=== PATIENT | male | born 1960 | race African-American/Black ===

== ENCOUNTER 2018-05-08 12:38 | Inpatient (IN) | payer OTHER ==
[~2018-05-08] VITALS: Ht 182.9 cm; Wt 81.3 kg
[2018-05-08 14:12] LABS: Basophils # (auto) 0.1 uL; Eosinophils # (auto) 0 uL; Eosinophils % (auto) 0.3 % (0.0-7.0); Hematocrit 45.9 % (41.0-53.0); Hemoglobin 15.1 g/dL (13.5-17.5); Lymphocytes # (auto) 2.7 uL; Lymphocytes % (auto) 22.8 % (10.0-50.0); Mean Corpuscular Hemoglobin 30.9 pg (28.0-32.0); Mean Corpuscular Volume 93.8 fL (80.0-100.0); Monocytes # (auto) 0.8 uL; Monocytes % (auto) 6.9 % (0.0-12.0); Neutrophils # (auto) 8.1 uL; Nucleated Red Blood Cells % 0.1 %; Platelet Count (auto) 154 10^3/uL (140-450); Red Blood Cells 4.89 10^6/uL (4.5-5.90); Red Cell Distribution Width 16.2 % (11.8-14.3); White Blood Cell 11.7 10^3/uL (4.4-10.8)
[2018-05-08 14:25] LABS: INR 1.08 (0.9-1.15); Partial Thromboplastin Time 25.3 sec (23.78-33.04); Prothrombin Time 11.5 sec (9.27-12.13)
[2018-05-08 14:32] LABS: Albumin 3.2 g/dL (3.4-5.0); BUN/Creatinine Ratio 24.7; Calcium 8.4 mg/dL (8.5-10.1); Magnesium 2.4 mg/dL (1.6-2.6); Potassium 4.4 mmol/L (3.5-5.1)
[2018-05-08 14:37] LABS: Bilirubin, Total 1.6 mg/dL (0.2-1.0)
[2018-05-08] MEDS ORDERED: HYDROcodone-ACET 10/325MG TAB PO ONE (16:45)
[2018-05-08] MEDS ORDERED: ASPirin 81 mg TAB PO ONE (16:45)
[2018-05-08] MEDS ORDERED: ONDANSETRON HCL 4 MG/2 ML VIAL IV ONE (17:00)
[2018-05-08] MEDS ORDERED: MORPHINE SULFATE 4 MG/ML SYR/VIAL IV ONE (17:00)
[2018-05-08] MEDS ORDERED: ONDANSETRON HCL 4 MG/2 ML VIAL IV PRN (23:00)
[2018-05-08] MEDS ORDERED: MORPHINE SULFATE 4 MG/ML SYR/VIAL IV PRN (23:00)
[2018-05-08] MEDS ORDERED: NITROGLYCERIN 0.4 MG SL TAB SL PRN (23:00)
[2018-05-08] MEDS ORDERED: ACETAMINOPHEN 500 MG TAB PO PRN (23:00)
[2018-05-08 23:45] VITALS: BP 116/80
[2018-05-09 00:14] VITALS: BP 116/80
[2018-05-09] MEDS ORDERED: POTA1TAB61 PO (00:24)
[2018-05-09] MEDS ORDERED: FURO20TA PO (00:24)
[2018-05-09] MEDS ORDERED: ASPI81TA27 PO (00:24)
[2018-05-09] MEDS ORDERED: ATO40T PO (00:24)
[2018-05-09] MEDS ORDERED: METF-370 PO (00:24)
[2018-05-09] MEDS ORDERED: PRE5T PO (00:24)
[2018-05-09 04:53] LABS: Urine Bacteria FEW /hpf (None Seen); Urine Blood TRACE /uL (Negative); Urine Mucus FEW (None Seen); Urine Specific Gravity 1.026 (1.001-1.035); Urine Sperm PRESENT /hpf (None Seen); Urine WBC 6 /hpf (0 - 3)
[2018-05-09 05:00] VITALS: BP 142/80
[2018-05-09 07:42] LABS: Calcium 7.9 mg/dL (8.5-10.1); Potassium 4.6 mmol/L (3.5-5.1)
[2018-05-09 07:47] LABS: Basophils # (auto) 0 uL; Basophils % (auto) 0.1 % (0.0-2.0); Eosinophils # (auto) 0 uL; Hematocrit 41.3 % (41.0-53.0); Hemoglobin 13.5 g/dL (13.5-17.5); Lymphocytes # (auto) 0.7 uL; Lymphocytes % (auto) 8.4 % (10.0-50.0); Mean Corpuscular Hemoglobin 30.5 pg (28.0-32.0); Mean Corpuscular Hgb Conc. 32.6 g/dL (32.0-36.0); Mean Corpuscular Volume 93.6 fL (80.0-100.0); Monocytes # (auto) 0.2 uL; Monocytes % (auto) 2.4 % (0.0-12.0); Neutrophils % (auto) 89.1 % (37.0-80.0); Nucleated Red Blood Cells % 0.1 %; Platelet Count (auto) 130 10^3/uL (140-450); Red Blood Cells 4.41 10^6/uL (4.5-5.90); Red Cell Distribution Width 16.3 % (11.8-14.3); White Blood Cell 7.9 10^3/uL (4.4-10.8)
[2018-05-09 08:44] VITALS: BP 133/81
[2018-05-09] MEDS: FUROSEMIDE 20 MG/2 ML VIAL IV SCH (10:00)
[2018-05-09] MEDS: predniSONE 20 MG TAB PO SCH (10:00)
[2018-05-09] MEDS: HYDROcodone-ACET 5/325MG TAB PO PRN ×2 (11:10→19:57)
[2018-05-09 12:30] VITALS: BP 113/72
[2018-05-09] MEDS ORDERED: cefTRIAXone 1GM/10ml IVPUSH 10 ML IV ONE (15:00)
[2018-05-09] MEDS ORDERED: ASPirin 81 mg TAB PO ONE (15:00)
[2018-05-09 16:41] VITALS: BP 122/72
[2018-05-09] MEDS: ATORVASTATIN 20 MG TAB PO SCH (21:43)
[2018-05-09 22:00] VITALS: BP 98/69
[2018-05-10 05:00] VITALS: BP 131/86
[2018-05-10 09:00] VITALS: BP 124/71
[2018-05-10] MEDS: ASPirin 81 mg TAB PO SCH (09:16)
[2018-05-10] MEDS: predniSONE 20 MG TAB PO SCH (09:16)
[2018-05-10] MEDS: cefTRIAXone 1GM/10ml IVPUSH 10 ML IV SCH (09:17)
[2018-05-10] MEDS: FUROSEMIDE 20 MG/2 ML VIAL IV SCH (10:00)
[2018-05-10 13:00] VITALS: BP 122/69
[2018-05-10 17:00] VITALS: BP 120/73
[2018-05-10 22:00] VITALS: BP 136/83
[2018-05-10] MEDS: ATORVASTATIN 20 MG TAB PO SCH (22:17)
[2018-05-10] MEDS: MORPHINE SULFATE 4 MG/ML SYR/VIAL IV PRN (22:18)
[2018-05-11 05:00] VITALS: BP 95/47
[2018-05-11 08:00] VITALS: BP 131/63
[2018-05-11 09:17] VITALS: BP 131/63
[2018-05-11] MEDS: FUROSEMIDE 20 MG/2 ML VIAL IV SCH (10:00)
[2018-05-11] MEDS: ASPirin 81 mg TAB PO SCH (10:20)
[2018-05-11] MEDS: cefTRIAXone 1GM/10ml IVPUSH 10 ML IV SCH (10:20)
[2018-05-11] MEDS: predniSONE 20 MG TAB PO SCH (10:21)
[2018-05-11] MEDS: MORPHINE SULFATE 4 MG/ML SYR/VIAL IV PRN ×2 (10:21→19:58)
[2018-05-11 13:00] VITALS: BP 127/71
[2018-05-11 17:16] VITALS: BP 124/87
[2018-05-11 19:54] VITALS: BP 137/77
== END 2018-05-11 20:20 | disposition short-term general hospital (02) | DRG 552 ==
LOC: ER 12:38 → EAST 12:39 → TELE-EAST 23:46
PROVIDERS: ADMIT Nurse Practitioner Family; ATTEND Family Medicine
DX: S32.040A Wedge compression fracture of fourth lumbar vertebra, initial encounter for closed fracture (principal); M33.90 Dermatopolymyositis, unspecified, organ involvement unspecified; N39.0 Urinary tract infection, site not specified; E78.5 Hyperlipidemia, unspecified; I11.0 Hypertensive heart disease with heart failure; I25.10 Atherosclerotic heart disease of native coronary artery without angina pectoris; E78.00 Pure hypercholesterolemia, unspecified; J84.10 Pulmonary fibrosis, unspecified; W01.0XXA Fall on same level from slipping, tripping and stumbling without subsequent striking against object, initial encounter; I50.9 Heart failure, unspecified; M47.816 Spondylosis without myelopathy or radiculopathy, lumbar region; M46.06 Spinal enthesopathy, lumbar region; Z82.49 Family history of ischemic heart disease and other diseases of the circulatory system; Z99.81 Dependence on supplemental oxygen; Y93.89 Activity, other specified; Y92.89 Other specified places as the place of occurrence of the external cause
CPT/HCPCS: 36415; 71045; 72100; 72131; 80048; 80053; 81001; 82550; 82962; 83735; 84484; 85025; 85610; 85730; 87086; 93005; 94761; 96374; 96375; 99291; J0696; J2405